=== PATIENT | male | born 1960 | race Caucasian/White ===

== ENCOUNTER 2024-02-16 16:03 | Emergency (ER) | payer OTHER ==
[~2024-02-16] VITALS: Ht 160 cm; Wt 71.2 kg
[2024-02-16 16:05] VITALS: BP 117/71; PULSE 56; RESP 16; TEMP 98; O2SAT 98
[2024-02-16 17:17] VITALS: BP 115/68; PULSE 55; RESP 17; TEMP 98; O2SAT 98
[2024-02-16] MEDS ORDERED: IBUP-2213 PO (17:56)
[2024-02-16] MEDS ORDERED: ONDA-188 SL (17:56)
== END 2024-02-16 18:06 | disposition home or self-care (01) ==
LOC: EDBD 16:03 → MED 16:03
DX: S13.9XXA Sprain of joints and ligaments of unspecified parts of neck, initial encounter (principal); S23.3XXA Sprain of ligaments of thoracic spine, initial encounter; S09.90XA Unspecified injury of head, initial encounter; Z79.899 Other long term (current) drug therapy; V89.2XXA Person injured in unspecified motor-vehicle accident, traffic, initial encounter; Y93.89 Activity, other specified; Y92.410 Unspecified street and highway as the place of occurrence of the external cause; Y99.8 Other external cause status
CPT/HCPCS: 70450; 72040; 72072; 99284